=== PATIENT | male | born 1985 | race Caucasian/White ===

== ENCOUNTER 2019-04-21 10:53 | Emergency (ER) | payer OTHER ==
[~2019-04-21] VITALS: Ht 180.3 cm; Wt 81.8 kg
[2019-04-21 10:56] VITALS: Ht 180.3 cm; Wt 81.8 kg
[2019-04-21 11:31] LABS: APPEARANCE CLEAR (CLEAR); BILIRUBIN NEGATIVE (NEGATIVE); COLOR YELLOW (YELLOW); GLUCOSE NEGATIVE (NEGATIVE); KETONE NEGATIVE (NEGATIVE); NITRITE NEGATIVE (NEGATIVE); PROTEIN NEGATIVE (NEGATIVE); SPECIFIC GRAVITY 1.015 (1.005-1.020); UROBILINOGEN NORMAL (NORMAL)
[2019-04-21 11:33] LABS: BACTERIA FEW /hpf (NONE SEEN); EPITHELIAL CELLS OCC /hpf (0-5); RED CELLS - URINE 0-5 /hpf (0-5); WHITE CELLS - URINE 0-5 /hpf (0-5)
[2019-04-21 11:59] LABS: BASOPHILS 0.1 % (0-2); EOSINOPHILS 0.3 % (0-7); HEMATOCRIT 42.3 % (42.0-54.0); IMMATURE GRANULOCYTES 0.3 % (0-5); LYMPHOCYTES 8.3 % (15-50); MCH 31.6 pg (26.0-34.0); MCHC 35.5 g/dL (31.0-37.0); MCV 89.2 fL (80.0-100.0); MONOCYTES 6.1 % (2-11); NEUTROPHILS 84.9 % (40-80); PLATELET COUNT 143 10x3/uL (130-400); RBC 4.74 10x6/uL (4.20-6.10); WBC 18.1 10x3/uL (4.8-10.8)
[2019-04-21 12:12] LABS: ALBUMIN 3.7 g/dL (3.4-5.0); ANION GAP 11.9 mmol/L (8-16); BILIRUBIN - TOTAL 0.37 mg/dL (0.2-1.3); CALCIUM 8.7 mg/dL (8.5-10.1); CARBON DIOXIDE 27.2 mmol/L (21.0-32.0); CREATININE - SERUM 1.2 mg/dL (0.6-1.3); POTASSIUM - SERUM 4.1 mmol/L (3.5-5.1); PROTEIN - SERUM 6.9 g/dL (6.4-8.2)
[2019-04-21] MEDS ORDERED: ZOFRAN ODT4 MG/UDTAB PO (12:27)
[2019-04-21] MEDS ORDERED: TORADOL10 MG PO (12:27)
[2019-04-21] MEDS ORDERED: CIPRO500 MG PO (12:27)
[2019-04-21 12:38] VITALS: BP 117/54
== END 2019-04-21 12:39 | disposition home or self-care (01) ==
LOC: D.ER 10:53
PROVIDERS: Family Medicine
DX: N20.0 Calculus of kidney (principal); R10.9 Unspecified abdominal pain